=== PATIENT | female | born 1975 | race African-American/Black ===

== ENCOUNTER → 2020-05-04 | Outpatient (CLI) | payer BC | LOC: MC.RAD 09:56 | DX: R92.0 Mammographic microcalcification found on diagnostic imaging of breast (principal); Z98.82 Breast implant status ==

== ENCOUNTER 2020-07-29 06:54 | Day surgery (SDC) | payer BC ==
[~2020-07-29] VITALS: Ht 149.9 cm; Wt 51.7 kg
[2020-07-29 08:19] VITALS: BP 119/64; PULSE 62
--- NOTE | 2020-07-29 10:32 | NUR ---
Initial visit; Patient and her thanked [employer] for offering encouragement and prayer prior to her surgical procedure.
[2020-07-29 11:10] VITALS: BP 96/61; PULSE 73; TEMP 97.3
--- NOTE | 2020-07-29 11:10 | NUR ---
The patient arrived back to [facility] from the operating room at this time. The patient appears alert and oriented and denies any pain or nausea at this time. Post operative vital signs were started at this time. The patient's dressing to her right breast appears clean, dry and intact. The patient's significant other is at her bedside at this time. Call light is within reach. The patient appears drowsy but arouses easily to her name. Will continue to monitor the patient.
[2020-07-29 11:25] VITALS: BP 101/61; PULSE 65
--- NOTE | 2020-07-29 11:25 | NUR ---
The patient appears more alert and agrees to try some ice water at this time. Vital signs appear stable. Call light is within reach. Will continue to monitor the patient.
[2020-07-29 11:44] VITALS: BP 100/49; PULSE 55
--- NOTE | 2020-07-29 11:44 | NUR ---
The patient has tried the water and appeared to tolerate it well. The patient does not want anything further to eat to drink and voices a desire to be discharged home.
[2020-07-29 11:55] VITALS: BP 109/57; PULSE 66
--- NOTE | 2020-07-29 11:55 | NUR ---
Discharge instructions were reviewed with the patient and her significant other at this time. They both verbalized understanding and have no questions for the nurse at this time. The nurse instructed the patient to get dressed and notify the staff when she is ready to be escorted out.
--- NOTE | 2020-07-29 12:10 | NUR ---
The patient was escorted out via wheelchair to a private vehicle by [employer]. The patient's belongings and discharge paperwork were sent with her. The patient's significant other is present to drive her home.
== END 2020-07-29 12:10 | disposition home or self-care (01) ==
LOC: SDCO
DX: N60.11 Diffuse cystic mastopathy of right breast (principal); D24.1 Benign neoplasm of right breast; Z20.822 Contact with and (suspected) exposure to COVID-19
CPT/HCPCS: J0690; J1100; J1885; J2250; J2405; J2704; J2795; J7120